=== PATIENT | female | born 1955 | race Caucasian/White ===

== ENCOUNTER → 2016-10-11 | Outpatient (CLI) | payer OTHER ==
--- NOTE | ~2016-10-11 | P ---
[facility] [place] [address] PROCEDURE REPORT Name: MIGUEL ÁNGEL ONOFRE Room #: REG [facility]#: [id number] Admission: 10/11/16 Attend Phys: Rafal Kirkland MD Discharge: Date of : 51 Report #: [id number] THIS REPORT FOR: //name// CC: Cassandra Kirkland PREOPERATIVE DIAGNOSIS: History of colon polyps. POSTOPERATIVE DIAGNOSES: 1. Moderate sigmoid diverticulosis coli. 2. Internal hemorrhoids MEDICATIONS: Deep sedation with propofol per anesthesia. SPECIMEN: None. ESTIMATED BLOOD LOSS: None. PROCEDURE: Colonoscopy to cecum and terminal ileum. FINDINGS: Prior to propofol sedation, procedure of colonoscopy was discussed with the patient as well as potential risks, benefits, and complications. She indicates she understands and desires to proceed. With the patient in left lateral decubitus position, digital examination was completed, which revealed no abnormalities. Subsequently, the [employer] video colonoscope was introduced into the rectum, advanced under direct vision to the cecum. Done with some difficulty tortuous redundant colon, and a stiffening wire was used to gain access into the cecum. The cecum was identified by the ileocecal valve and appendiceal orifice. I was able to visualize the distal segment of terminal ileum, which was inspected and noted to be unremarkable. At that point, the scope was slowly withdrawn and careful circumferential views obtained including retroflexion of the scope in the ascending colon. Upon slow withdrawal of the scope, the prep was noted to be good. The mucosa was within normal limits, normal vascular pattern, and normal light reflex. As we withdrew the scope, no neoplastic lesions were seen. She had normal colonic mucosa throughout. A few scattered diverticula were seen in the proximal colon, but she had moderately severe diverticular disease of the left colon, in particular the sigmoid colon without endoscopic evidence of diverticulitis. Again, the colonic mucosa was normal throughout and no polyps were seen. Scope was withdrawn in the rectum. Upon retroflexion, small hemorrhoids were seen. Scope was withdrawn. The patient tolerated the procedure well. CONDITION OF THE PATIENT UPON DISCHARGE: Following procedure, the patient drowsy, aroused, conversant and she will be discharged home when fully [address] [address] PROCEDURE REPORT Name: MIGUEL ÁNGEL ONOFRE Room #: REG [facility] [place].#: [id number] Admission: 10/11/16 Attend Phys: Rafal Kirkland MD Discharge: Date of : 51 Report #: [id number] ambulatory. INSTRUCTIONS TO THE PATIENT AND FAMILY AT THE TIME OF DISCHARGE: No neoplastic lesions were seen. Due the diverticular disease, suggest high fiber diet. Since no polyps were seen on this occasion, we will have her return in 10 years for a surveillance colonoscopy. She will otherwise return to care of Dr. Mackey and return to see me as needed. Last colonoscopy was a little more than 5 years ago. Withdrawal time from the cecum was 13 minutes. <ELECTRONICALLY SIGNED> By: Rafal Kirkland MD 10/14/16 1104 1124 1145 Rafal Kirkland MD /nt
== END | disposition home or self-care (01) ==
LOC: GI 03:08
DX: K57.30 Diverticulosis of large intestine without perforation or abscess without bleeding (principal); K64.8 Other hemorrhoids
CPT/HCPCS: 62110; 62900